=== PATIENT | female | born 1950 | race Caucasian/White ===

== ENCOUNTER 2021-03-20 12:20 | Outpatient (CLI) | payer OTHER | END 2021-03-20 12:28 | disposition home or self-care (01) | LOC: NUCLEAR 12:20 | DX: Z13.820 Encounter for screening for osteoporosis (principal); M81.0 Age-related osteoporosis without current pathological fracture ==

== ENCOUNTER 2021-12-04 07:15 | Outpatient (CLI) | payer OTHER | END 2021-12-04 07:16 | disposition home or self-care (01) | LOC: LAB 07:15 | DX: N39.0 Urinary tract infection, site not specified (principal) ==

== ENCOUNTER 2021-12-08 12:13 | Outpatient (CLI) | payer OTHER | END 2021-12-08 12:20 | disposition home or self-care (01) | LOC: TOM 12:13 | PROVIDERS: ATTEND Internal Medicine Hematology & Oncology | DX: C18.4 Malignant neoplasm of transverse colon (principal) ==

== ENCOUNTER 2022-05-28 12:06 | Outpatient (CLI) | payer OTHER | END 2022-05-28 12:19 | disposition home or self-care (01) | LOC: LAB 12:06 | PROVIDERS: ATTEND Radiology Diagnostic Radiology | DX: R10.84 Generalized abdominal pain (principal) ==

== ENCOUNTER 2022-06-05 07:19 | Outpatient (CLI) | payer OTHER | END 2022-06-05 07:23 | disposition home or self-care (01) | LOC: SONOGRAMA 07:19 | DX: I71.4 Abdominal aortic aneurysm, without rupture (principal) ==

== ENCOUNTER 2022-10-22 08:21 | Outpatient (CLI) | payer OTHER | END 2022-10-22 08:31 | disposition home or self-care (01) | LOC: TOM 08:21 | PROVIDERS: ATTEND Internal Medicine Hematology & Oncology | DX: C18.6 Malignant neoplasm of descending colon (principal); I71.8 Aortic aneurysm of unspecified site, ruptured ==

== ENCOUNTER 2022-10-22 09:18 | Outpatient (CLI) | payer OTHER | END 2022-10-22 13:45 | disposition home or self-care (01) | LOC: LAB 09:18 | PROVIDERS: ATTEND Radiology Diagnostic Radiology | DX: C18.6 Malignant neoplasm of descending colon (principal) ==

== ENCOUNTER 2023-06-10 08:02 | Outpatient (CLI) | payer OTHER | END 2023-06-10 08:04 | disposition home or self-care (01) | LOC: LAB 08:02 | DX: C18.6 Malignant neoplasm of descending colon (principal) ==

== ENCOUNTER 2023-06-13 07:20 | Outpatient (CLI) | payer OTHER | END 2023-06-13 08:00 | disposition home or self-care (01) | LOC: TOM 07:20 | DX: C18.6 Malignant neoplasm of descending colon (principal) ==

== ENCOUNTER → 2023-08-23 09:20 | Outpatient (CLI) | payer OTHER ==
[2023-08-23 10:53] LABS: CREATININE SERUM 0.86 mg/dL (0.55-1.02)
== END | disposition home or self-care (01) ==
LOC: LAB 09:20
PROVIDERS: ATTEND Radiology Diagnostic Radiology
DX: I71.40 Abdominal aortic aneurysm, without rupture, unspecified (principal)

== ENCOUNTER → 2023-08-27 | Outpatient (CLI) | payer OTHER | END | disposition home or self-care (01) | LOC: TOM 08:13 | DX: I71.40 Abdominal aortic aneurysm, without rupture, unspecified (principal) ==

== ENCOUNTER 2024-01-02 07:56 | Outpatient (CLI) | payer OTHER | END 2024-01-02 08:00 | disposition home or self-care (01) | LOC: TOM 07:56 | PROVIDERS: ATTEND Internal Medicine Hematology & Oncology | DX: C18.6 Malignant neoplasm of descending colon (principal) ==

== ENCOUNTER 2024-09-01 08:05 | Outpatient (CLI) | payer OTHER | END 2024-09-01 08:14 | disposition home or self-care (01) | LOC: TOM 08:05 | DX: I71.40 Abdominal aortic aneurysm, without rupture, unspecified (principal) ==

== ENCOUNTER 2025-05-13 08:38 | Outpatient (CLI) | payer OTHER | END 2025-05-13 08:47 | disposition home or self-care (01) | LOC: TOM 08:38 | DX: C18.6 Malignant neoplasm of descending colon (principal) ==